=== PATIENT | female | born 1950 | race Caucasian/White ===

== ENCOUNTER 2023-09-29 07:44 | Day surgery (SDC) | payer MEDICARE ==
[~2023-09-29 07:44] MED LIST: Acetaminophen/HYDROcodone 325-5 MG Tab PO PRN; Lactated Ringers 1,000 ML IV SCH; ceFAZolin 1 GM in Premix Bag 1 BAG IV ONE
[2023-09-29] MEDS ORDERED: fentaNYL 100 MCG/2 ML SDV ONE (10:00)
[2023-09-29] MEDS ORDERED: Propofol 200 MG/20 ML SDV ONE (10:00)
== END 2023-09-29 10:47 | disposition home or self-care (01) ==
LOC: LB.SDS 07:44
PROVIDERS: ATTEND Orthopaedic Surgery
DX: M65.342 Trigger finger, left ring finger (principal); K21.9 Gastro-esophageal reflux disease without esophagitis; E78.5 Hyperlipidemia, unspecified; M85.80 Other specified disorders of bone density and structure, unspecified site; Z78.0 Asymptomatic menopausal state; Z79.899 Other long term (current) drug therapy
CPT/HCPCS: A9270-GY; J0690; J2704; J3010; J7120

== ENCOUNTER 2025-02-07 17:29 | Inpatient (IN) | payer MEDICARE ==
[2025-02-07] MEDS ORDERED: Sodium Chloride 0.9% 10 ML Syringe FLUSH PRN (18:46)
[2025-02-07 19:22] LABS: APPEARANCE,URINE CLEAR (CLEAR); COLOR,URINE YELLOW
[2025-02-07 19:23] LABS: HEMATOCRIT 40.2 % (37.0-47.0); HEMOGLOBIN 13.5 g/dL (11.5-16.5); MEAN CORPUSCULAR HEMOGLOBIN 31.9 pg (27.0-32.0); MEAN CORPUSCULAR HGB CONC 33.6 g/dL (31.0-35.0); MEAN PLATELET VOLUME 9.8 fL (6.0-10.0); RED BLOOD CELL COUNT 4.23 M/uL (3.80-5.80); RED CELL DISTRIBUTION WIDTH 13.4 % (11.0-16.0); WHITE BLOOD CELL COUNT,WBC 10.8 K/uL (4.0-11.0)
[2025-02-07 19:23] LABS: BILIRUBIN,URINE NEGATIVE (NEGATIVE); GLUCOSE,URINE NEGATIVE (NEGATIVE); KETONES,URINE NEGATIVE (NEGATIVE); OCCULT BLOOD,URINE TRACE-LYSED (NEGATIVE); PH,URINE 5.5 (5.0-8.0); PROTEIN,URINE NEGATIVE (NEGATIVE); UROBILINOGEN,URINE 0.2 E.U./dL (0.2-1.0)
[2025-02-07 19:24] LABS: LEUKOCYTE ESTERASE,URINE NEGATIVE (NEGATIVE); NITRITE,URINE NEGATIVE (NEGATIVE)
[2025-02-07 19:49] LABS: A/G RATIO 0.7 (0.8-2.0); ALBUMIN 3.5 g/dL (3.4-5.0); ANION GAP 14.2 mmol/L (5.0-15.0); BILIRUBIN TOTAL 0.4 mg/dL (0.0-1.0); BUN/CREATININE RATIO 16.8 (6-25); CALCIUM 9.5 mg/dL (8.5-10.1); CARBON DIOXIDE,CO2 27.5 mmol/L (21.0-32.0); CREATININE 1.49 mg/dL (0.55-1.02); EST CRCL DRUG DOSING (CG) 28.6 mL/min; POTASSIUM,K 3.7 mmol/L (3.5-5.1); PROTEIN TOTAL,TP 8.3 g/dL (6.4-8.2)
[2025-02-07] MEDS: Sodium Chloride 0.9% 1,000 ML IV ONE (19:57)
[2025-02-07] MEDS: Ciprofloxacin 500 MG Tab PO ONE (20:39)
[2025-02-07] MEDS: Tamsulosin 0.4 MG Cap.ER PO ONE (20:39)
[2025-02-07] MEDS ORDERED: Morphine 2 MG/ML SYRINGE IVPUSH PRN (20:55)
[2025-02-07] MEDS ORDERED: Ondansetron 4 MG/2 ML SDV IV PRN (20:55)
[2025-02-07] MEDS: Morphine 4 MG/ML VIAL IVPUSH ONE (20:56)
[2025-02-07] MEDS ORDERED: Non-Formulary Medication 1 Each (Omeprazole [Omeprazole] 20 MG Cap.Cr) PO PRN ×2 (20:57→22:01)
[2025-02-07] MEDS ORDERED: Sodium Chloride 0.9% 1,000 ML IV SCH (21:45)
[2025-02-07] MEDS: Sodium Chloride 0.9% 1,000 ML IV SCH (21:52)
[2025-02-08] MEDS: Heparin Sodium 5,000 Units/ML Vial SUBCUT SCH (00:12)
[2025-02-08] MEDS: Morphine 4 MG/ML VIAL IVPUSH PRN (02:56)
[2025-02-08] MEDS: Ciprofloxacin 250 MG Tab PO SCH (08:34)
[2025-02-08] MEDS: Tamsulosin 0.4 MG Cap.ER PO SCH (08:36)
[2025-02-08 08:49] LABS: ANION GAP 13.8 mmol/L (5.0-15.0); BUN/CREATININE RATIO 15.2 (6-25); CALCIUM 8.8 mg/dL (8.5-10.1); CARBON DIOXIDE,CO2 26.5 mmol/L (21.0-32.0); CREATININE 1.25 mg/dL (0.55-1.02); EST CRCL DRUG DOSING (CG) 34.1 mL/min; POTASSIUM,K 4.3 mmol/L (3.5-5.1)
[2025-02-08] MEDS ORDERED: Simvastatin 20 MG Tab PO SCH (20:00)
[2025-02-09] MEDS ORDERED: Pantoprazole 40 MG Tab.CR PO SCH (08:00)
== END 2025-02-08 13:09 | disposition home or self-care (01) | DRG 694 ==
LOC: LB.ED 17:29 → LB.MS 20:36
PROVIDERS: ADMIT Surgery; ATTEND Surgery
DX: N20.1 Calculus of ureter (principal); N13.2 Hydronephrosis with renal and ureteral calculous obstruction; N28.82 Megaloureter; N17.9 Acute kidney failure, unspecified; H54.7 Unspecified visual loss; E78.00 Pure hypercholesterolemia, unspecified; F15.90 Other stimulant use, unspecified, uncomplicated; M19.90 Unspecified osteoarthritis, unspecified site; Z98.49 Cataract extraction status, unspecified eye; Z98.890 Other specified postprocedural states; Z79.899 Other long term (current) drug therapy; Z79.02 Long term (current) use of antithrombotics/antiplatelets
CPT/HCPCS: 36415; 74176; 80053; 81001; 85027; 96360; 99285; J7030; 80048; 99222; 99238; A9270-GY; J1644; J2270